=== PATIENT | female | born 1990 | race Caucasian/White ===

== ENCOUNTER 2017-12-31 05:56 | Day surgery (SDC) | payer BC ==
[~2017-12-31 05:56] MED LIST: HEPARIN 10,000 UNITS/10 ML IV ONE; MARCAINE 0.5% INFILTRATI ONE; NACL 0.9% 500 ML IRRIGATION ONE; XYLOCAINE 1% 20 mL INFILTRATI ONE
[2017-12-31] MEDS ORDERED: ANCEF/STERILE WATER 2 GM/20 ML 2 GM/20 ML SYRINGE IV NR (06:00)
[2017-12-31] MEDS ORDERED: NACL 0.9% 1000 ML 1,000 ML IV SCH (06:00)
[2017-12-31] MEDS ORDERED: NACL BACTERIOSTATIC INFILTRATI ONE (06:41)
[2017-12-31 07:06] LABS: Basophils % (Auto) 0.6 % (0.0-1.8); Eosinophils # (Auto) 0.2 K/mm3 (0.0-0.4); Eosinophils % (Auto) 2.4 % (0.0-4.3); Hematocrit 35.8 % (30.3-42.9); Hemoglobin 12.1 gm/dl (10.1-14.3); Lymphocytes # (Auto) 1.9 K/mm3 (1.2-5.4); Lymphocytes % (Auto) 28.3 % (13.4-35.0); Mean Corpuscular HGB Conc 34 % (30-34); Mean Corpuscular Hemoglobin 27 pg (28-32); Mean Corpuscular Volume 81 fl (79-97); Monocytes # (Auto) 0.6 K/mm3 (0.0-0.8); Monocytes % (Auto) 8.7 % (0.0-7.3); Platelet Count 163 K/mm3 (140-440); Red Blood Count 4.43 M/mm3 (3.65-5.03); Red Cell Distribution Width 12.7 % (13.2-15.2)
[2017-12-31] MEDS ORDERED: DIPRIVAN 10 MG/ML IV ONE (07:11)
[2017-12-31] MEDS ORDERED: SUBLIMAZE ONE ×3 (07:11→08:50)
[2017-12-31] MEDS ORDERED: XYLOCAINE MPF 2% ONE ×2 (07:12→08:52)
[2017-12-31] MEDS ORDERED: MARCAINE 0.5% 30 ML INFILTRATI ONE (07:13)
[2017-12-31] MEDS ORDERED: PAPAVERINE ONE (07:13)
[2017-12-31] MEDS ORDERED: PROTAMINE SULFATE ONE (07:13)
[2017-12-31] MEDS ORDERED: SODIUM BICARBONATE ONE (07:14)
[2017-12-31] MEDS ORDERED: HEPARIN 10,000 UNITS/10 ML ONE (07:14)
[2017-12-31] MEDS ORDERED: NACL 0.9% 250ML 250 ML ONE (07:14)
[2017-12-31] MEDS ORDERED: XYLOCAINE 1% 20 mL ONE (07:15)
[2017-12-31 07:21] LABS: BUN/Creatinine Ratio 14; Blood Urea Nitrogen 15 mg/dL (7-17); Calcium 9.1 mg/dL (8.4-10.2); Hemolysis Index 1
--- NOTE | 2017-12-31 07:30 | Anesthesia Consultation ---
Anesthesia Consult and Med Hx Date of service: 12/31/17 - Airway Mallampati Class: Class II Intubation Access Assessment: Probably Good - Pulmonary Exam CTA: Yes - Cardiac Exam Cardiac Exam: RRR - Pre-Operative Health Status ASA Pre-Surgery Classification: ASA3 (s/p renal transplant) - Cardiovascular System Hx Hypertension: Yes (Since 10/2017) - Central Nervous System Hx Psychiatric Problems: No - Endocrine Hx Renal Disease: Yes - Hematic Hx Anemia: Yes (Past hx) - Other Systems Hx Cancer: No
--- NOTE | 2017-12-31 07:31 | Anesthesia Day of Surgery ---
Anesthesia Day of Surgery - Day of Surgery Patient Examined: Yes Patient H&P Reviewed: Yes Beta Blockers: No Cardiac Clearance: No Pulmonary Clearance: No
[2017-12-31] MEDS ORDERED: ZOFRAN ONE (08:20)
[2017-12-31] MEDS ORDERED: DECADRON ONE (08:20)
[2017-12-31] MEDS ORDERED: QUELICIN ONE (08:29)
[2017-12-31] MEDS ORDERED: NACL 0.9% 1000 ML 1,000 ML ONE (09:17)
--- NOTE | 2017-12-31 09:55 | Short Stay Summary ---
Short Stay Documentation Date of service: 12/31/17 Narrative H&P: See H&P - History H&P: obtained from office - Allergies and Medications Current Medications: Allergies No Known Allergies Allergy (Verified 12/30/17 19:45) Home Medications Medication Instructions Recorded Confirmed Last Taken Type Mycophenolate [Cellcept] 750 mg PO BID 12/30/17 12/31/17 12/30/17 12:00 History NIFEdipine [Nifedipine ER] 30 mg PO DAILY 12/30/17 12/31/17 12/30/17 21:00 History Tacrolimus [Prograf] 0.5 mg PO Q12H 12/30/17 12/31/17 12/30/17 12:00 History predniSONE [Deltasone] 20 mg PO DAILY 12/30/17 12/31/17 12/30/17 12:00 History Active Medications Hydromorphone HCl (Dilaudid) 0.5 mg IV Q10MIN PRN PRN Reason: Pain , Severe (7-10) Stop: 12/31/17 14:00 Cefazolin Sodium (Ancef/Sterile Water 2 Gm/20 Ml) 2 gm in 20 mls @ 80 mls/hr IV PREOP NR; Protocol Stop: 12/31/17 23:00 Sodium Chloride (Nacl 0.9% 1000 Ml) 1,000 mls @ 42 mls/hr IV DIRECT RENAE Last Admin: 12/31/17 07:03 Dose: 42 mls/hr - Brief post op/procedure progress note Date of procedure: 12/31/17 Pre-op diagnosis: Complications of Dialysis Access Post-op diagnosis: same Procedure: Ligation of Left Arm AV Fistula Anesthesia: GETA Surgeon: LAINEY GRANT Estimated blood loss: minimal Pathology: list (portion of left AV fistula) Specimen disposition: to lab Condition: stable - Disposition Condition at discharge: Good Disposition: [id number] TO HOME OR SELFCARE Short Stay Discharge Plan Activity: other (no heavy lifting with left arm) Wound: open to air, keep clean and dry, other (okay to wash the wound with soap and water but do not soak in water) Follow up with: LAINEY GRANT MD [Staff Physician] - 14 Days Prescriptions: HYDROcodone/ACETAMINOPHEN [Bruni 7.5-325 Tablet] 1 each PO Q6HR PRN #40 tablet PRN Reason: Pain
[2017-12-31] MEDS: DILAUDID IV PRN ×2 (10:01→10:10)
[2017-12-31] MEDS ORDERED: NORCO 7.5/325 PO PRN (10:08)
--- NOTE | 2017-12-31 10:12 | Operative Report ---
Operative Report Operative Report: Date of Procedure: 12/31/2017 Pre-operative Diagnosis: Complications of Dialysis Access Post-operative Diagnosis: Same Procedure(s): 1. Ligation of Left Arm Arteriovenous Fistula Surgeon: Kwan Willson M.D. [employer]: None Anesthesia: Gen. Endotracheal Anesthesia EBL: Minimal Counts: Correct Complications: None Condition: Stable Findings: Ligation of left arm AV fistula with closure of the arteriotomy using the remnant of the fistula stump. Patient had a palpable radial pulse at the completion of the case. Specimen: Portion of the arterial inflow of the left AV fistula sent to pathology. Indication: The patient is a 27-year-old female with a history of renal failure who recently received a renal transplant. She presented to our office with complaints of redness and pain at her arterial inflow of her left arm AV fistula. She also noted some enlargement of the fistula. A duplex of the fistula demonstrated that it was partially thrombosed and given her recent transplant in the fact that she no longer needed the fistula was felt that she would benefit from a condition of the fistula. She was given the risks, benefits, and alternative procedures and consented to the procedure. Description of Procedure: The patient was brought into the operating room and laid in supine position. After general endotracheal anesthesia was achieved her left arm was prepped and draped in normal sterile fashion. A transverse incision was created through her previous incision and carried down to the fistula using sharp dissection. The area was individually enlarged slightly secondary to a previous stenosis. Of note the area was no longer tender and indurated as it was when evaluated in the office. I was able to dissect down to the brachial artery proximal and distal to the anastomosis. This was controlled with Vesseloops and then the patient was systemically heparinized with 3000 units of heparin IV. The Vesseloops were then put on tension to control flow and the venous outflow of the fistula was ligated with a 2-0 silk distally and transected and then the fistula was transected just above the arterial anastomosis, leaving a cuff for closure of the arteriotomy. The artery was flushed and then closed with 2 6-0 Prolene's in running fashion. Prior to leaving the closer the inflow and outflow the artery were flashed again and then flushed with heparinized saline. The closure was completed and the Vesseloops were released allowing flow into the artery was produced a palpable pulse in the radial artery. Hemostasis within the wound was achieved with quick clot. Once hemostasis was achieved the wound was anesthetized with 0.5% Marcaine and closed in 2 layers using a 3- 0 Vicryl in running fashion and the deep dermal layer and a 4-0 Monocryl and then dressed with Dermabond. The patient tolerated the procedure well. All sponge, needle, and instrument counts were correct. The patient was taken to the recovery area in stable condition.
[2017-12-31 11:26] VITALS: BP 131/83
--- NOTE | 2017-12-31 12:31 | Post Anesthesia Evaluation ---
- Post Anesthesia Evaluation Patient Participated: Yes Airway Patent: Yes Stable Respiratory Function: Yes Nausea/Vomiting: No Temp > 96.8F: Yes Pain Manageable: Yes Adequeate Hydration: Yes Anesthesia Complications: No Block Receding Appropriately: No Patient on Ventilator: No
== END 2017-12-31 11:40 | disposition home or self-care (01) ==
LOC: OR 05:56
PROVIDERS: ATTEND Surgery Vascular Surgery
DX: T82.898A Other specified complication of vascular prosthetic devices, implants and grafts, initial encounter (principal); I12.0 Hypertensive chronic kidney disease with stage 5 chronic kidney disease or end stage renal disease; N18.6 End stage renal disease; Y83.2 Surgical operation with anastomosis, bypass or graft as the cause of abnormal reaction of the patient, or of later complication, without mention of misadventure at the time of the procedure
CPT/HCPCS: 36415; 36832; 80048; 81025; 85025; 88304; J0690; J1100; J1170; J1644; J2405; J2704; J3010; J7030; J7040; J7050; J0330; J2440; J2720